=== PATIENT | female | born 1950 | race Caucasian/White ===

== ENCOUNTER 2018-06-10 19:03 | Emergency (ER) | payer OTHER ==
[2018-06-10] MEDS: PROMETHAZINE/DM (CUP) PO (23:12)
[2018-06-10 23:42] LABS: TROPONIN-I < 0.012 ng/ml (0.000-0.120)
== END 2018-06-11 00:48 | disposition home or self-care (01) ==
LOC: FTE 06-11 00:48
DX: J06.9 Acute upper respiratory infection, unspecified (principal)
CPT/HCPCS: 71045; 84484; 93005; 99285-25